=== PATIENT | female | born 2000 | race American Indian/Alaskan Native ===

== ENCOUNTER 2019-07-13 14:07 | Emergency (ER) | payer SELFPAY ==
[2019-07-13] MEDS ORDERED: IBUPROFEN 800 MG TAB PO ONE (16:12)
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
[2019-07-13 16:34] VITALS: BP 125/70
== END 2019-07-13 16:41 | disposition home or self-care (01) ==
LOC: ED 14:07
DX: R51 Headache (principal); Z98.890 Other specified postprocedural states; V49.49XA Driver injured in collision with other motor vehicles in traffic accident, initial encounter; Y93.89 Activity, other specified; Y92.89 Other specified places as the place of occurrence of the external cause; Y99.8 Other external cause status